=== PATIENT | male | born 1945 | race Caucasian/White ===

== ENCOUNTER → 2016-10-24 | Day surgery (SDC) | payer OTHER ==
[2016-10-11 08:21] VITALS: BMI 35.0
--- NOTE | 2016-10-11 08:58 | PAT Medication Instructions ---
Service Date Oct 11, 2016. Current Home Medication List Acetaminophen (Tylenol), 1,000 MG PO PRN Aspirin (Aspirin Ec), 81 MG PO HS Glimepiride (Glimepiride), 1 TAB PO QAM Hctz/Lisinopril (Zestoretic 20-12.5 mg), 1 TAB PO QAM Metformin Hcl (Glucophage), 1,000 MG PO BID Simvastatin (Zocor), 40 MG PO HS Medication Instructions For Your Scheduled Surgery - Hold the following medications 48 hours prior to surgery: Metformin Hcl (Glucophage), 1,000 MG PO BID - Hold the following medications the morning of surgery: Hctz/Lisinopril (Zestoretic 20-12.5 mg), 1 TAB PO QAM Glimepiride (Glimepiride), 1 TAB PO QAM - Take the following medications the morning of surgery with a sip of water: Acetaminophen (Tylenol), 1,000 MG PO PRN (if needed) - Take the following medications as scheduled the night before surgery: Simvastatin (Zocor), 40 MG PO HS Acetaminophen (Tylenol), 1,000 MG PO PRN (if needed) Aspirin (Aspirin Ec), 81 MG PO HS If you have any questions please call us at [phone] or [phone] ( [place]) or [phone]
--- NOTE | 2016-10-11 09:37 | DIAGNOSTIC IMAGING REPORT ---
CHEST PREADMISSION(PA/LAT) HISTORY: Preop. COMPARISON: None. FINDINGS: The heart is mildly enlarged. The right lung is clear. Punctate calcified granuloma within the left midlung zone. No pleural effusions. No pneumothorax. IMPRESSION: No acute process. Electronically signed by: Chandana Coombs M.D. 10/11/2016 9:36 AM Dictated Date/Time: 10/11/2016 9:32 AM
[2016-10-11 09:38] LABS: BASO % 0.2 %; BASO ABS # 0.01 K/uL (0-0.2); COMPLETE YES; EOS % 2.4 %; HEMATOCRIT 39.2 % (42-52); IG% 0.2 %; LYMPH ABS # 1.05 K/uL (1.2-3.4); MEAN CELL VOLUME 86.9 fL (80-100); MEAN CORPUSCULAR HEMOGLOBIN 30.6 pg (25-34); MEAN CORPUSCULAR HGB CONC 35.2 g/dl (32-36); MEAN PLATELET VOLUME 10.2 fL (7.4-10.4); MONO % 7.2 %; PLATELET COUNT 123 K/uL (130-400); RED BLOOD COUNT 4.51 M/uL (4.7-6.1); WHITE BLOOD COUNT 5.53 K/uL (4.8-10.8)
[2016-10-11 09:47] LABS: PROTHROMBIN TIME (PATIENT) 10.4 SECONDS (9.0-12.0)
[2016-10-11 10:12] LABS: CALCIUM 8.8 mg/dl (8.5-10.1); CREATININE 1.1 mg/dl (0.60-1.40); POTASSIUM 4.2 mmol/L (3.5-5.1)
--- NOTE | 2016-10-23 10:36 | HISTORY & PHYSICAL EXAMINATION ---
DATE OF ADMISSION: 10/24/2016 CHIEF COMPLAINT: Left shoulder pain and disability. HISTORY OF PRESENT ILLNESS: The patient is a 70-year-old gentleman seen and evaluated in our office for left shoulder pain and disability. MRI confirms a large rotator cuff tear as well as some AC joint arthritis. Due to pain and disability, the patient is scheduled for a left shoulder arthroscopy, rotator cuff repair versus debridement and distal clavicle excision. Due to his difficult airway, the patient has been scheduled to be performed at the hospital. PAST MEDICAL HISTORY: Hypertension, hypercholesterolemia, type 2 diabetes. PAST SURGICAL HISTORY: Hip surgery, right knee, cataract surgery. MEDICATIONS: Include, glyburide-metformin 2.5-500 one tablet twice daily, simvastatin 40 mg at bedtime, lisinopril-HCTZ 20-12.5 once daily. ALLERGIES: No known drug allergies. SOCIAL HISTORY AND REVIEW OF SYSTEMS: Noncontributory. PHYSICAL EXAMINATION: GENERAL: Well-nourished, well-developed, obese male, who appears stated age. HEENT: Normocephalic, atraumatic, extraocular movements intact, oropharynx pink and moist. NECK: Supple without adenopathy. LUNGS: Clear to auscultation bilaterally. HEART: Regular rate and rhythm. ABDOMEN: Soft, nontender, nondistended, obese. EXTREMITIES: The left upper extremity demonstrates limited painful range of motion. He has weakness in the rotator cuff to resisted testing. There is pain to palpate about the AC joint. X-RAYS: X-rays and MRI were reviewed. The plain x-rays did not show any significant or obvious abnormalities. The MRI shows a large rotator cuff tear retracted back to the level of the glenoid. There is evidence of degenerative changes at the AC joint with a large infraclavicular spur. ASSESSMENT: Left shoulder rotator cuff tear and AC joint arthritis. PLAN: Risks versus benefits were discussed. Consent was obtained. The patient's primary care physician is Dr. Larios. Will proceed with a left shoulder arthroscopy, subacromial decompression, rotator cuff repair versus debridement and distal clavicle excision upon preoperative workup and medical clearance.
[~2016-10-24] VITALS: Ht 180.3 cm; Wt 115.7 kg
[~2016-10-24] MED LIST: ACET-1256 PO; ASPI81TA28 PO; ATROPINE SULFATE 0.1 MG/ML 5ML SYR IV PRN; BUPIVACAINE/EPINEPHRINE 0.25% 1:200,000 30 ML VIAL ONE; CEFAZOLIN 2000 MG/60 ML D5W IV SCH; DEXAMETHASONE SOD INJ 4 MG/ML VIAL ONE; EpHEDrine SULFATE INJ 50 MG/ML AMP IV PRN; FENTANYL CITRATE INJ 50 MCG/1 ML 2 ML VIAL IV PRN; FENTANYL CITRATE INJ 50 MCG/1 ML 2 ML VIAL ONE; GLIM2TAB2 PO; HYDROCODONE/ACETAMOPHEN 5/325MG TAB PO PRN; LACTATED RINGER'S 1000ML 1,000 ML IV SCH; LIDOCAINE HCL 2% 2 ML VIAL (20MG/ML) ONE; LISI-787 PO; METF-384 PO; METOPROLOL TARTRATE 1 MG/ML VIAL ONE; MIDAZOLAM HCL 1 MG/ML 2ML VIAL ONE; ONDANSETRON INJ 2 MG/ML 2 ML VIAL IV PRN; OXYC-57 PO; OXYCODONE/ACETAMINOPHEN 5-325 TAB PO PRN; PROMETHAZINE HCL INJ 6.25 MG in SODIUM CHLORIDE 0.9% 50ML 50 ML IV PRN; PROPOFOL IV EMULSION 10 MG/ML 20 ML VIAL IV ONE; SIMV40TA2 PO; SODIUM CHLORIDE 0.9% 1000ML 1,000 ML IV SCH
[2016-10-24 07:34] VITALS: BP 181/84; PULSE 59; TEMP 36.3; O2SAT 97; Ht 180.3 cm; Wt 115.7 kg
--- NOTE | 2016-10-24 08:02 | History & Physical Bridge Note ---
H&P Re-Evaluation Bridge Note: I have examined the patient, reviewed the History & Physical and in the interval since the performance of the History & Physical I have noted the following changes of clinical significance: No changes noted
--- NOTE | 2016-10-24 10:03 | [facility] Post Operative Brief Note ---
Immediate Operative Summary Operative Date Oct 24, 2016. Pre-Operative Diagnosis Left should rotator cuff tear and Acromioclavicular Joint Arthritis Post-Operative Diagnosis Left should rotator cuff tear and Acromioclavicular Joint Arthritis Procedure(s) Performed Left Shoulder Arthroscopic Subacromial Decompression, Rotator Cuff Repair, Distal Clavicle Incision Surgeon Dr. Bc Khan Uniform Cap Operator Surgeon(s) Yoandy Rogers PA-C Estimated Blood Loss 20ml Findings rc tear djd ac jt. Specimens none per surgeon Dr. Bc Khan Disposition Recovery Room / PACU
--- NOTE | 2016-10-24 10:14 | Discharge Instructions ---
Discharge Instructions Visit Reason for Visit: Left Shoulder Impingement Syndrome, Massive Rtc Te Discharge Discharge Diagnosis / Problem: Left shoulder rotator cuff tear, AC joint arthritis Discharge Goals Goal(s): Decrease discomfort, Improve function Anesthesia . Post Anesthesia Instructions: If you have had General Anesthesia or IV Sedation: * Do not drive today. * Resume driving when surgeon permits. * Do not make important decisions or sign legal documents today. * Call surgeon for: 1. Temperature elevations greater than 101 degrees F. 2. Uncontrollable pain. 3. Excessive bleeding. 4. Persistent nausea and vomiting. 5. Medication intolerance (nausea, vomiting or rash). * For nausea and vomiting use only clear liquids such as: tea, soda, bouillon until nausea subsides, then gradually increase diet as tolerated. * If you have any concerns or questions, call your surgeon's office. If physician is unavailable and it is an emergency, call 911 or go to the nearest emergency room. . Instructions / Follow-Up Instructions / Follow-Up [facility] DISCHARGE INSTRUCTIONS: ROTATOR CUFF REPAIR SELF CARE INSTRUCTIONS A. You are permitted to loosen your sling/immobilizer to move your elbow, wrist , and hand to prevent stiffness. You should use your well arm (good arm) to assist the operated extremity when trying to raise the arm away from the body, hygiene purposes. Do NOT actively try to use/engage your shoulder muscles in operative arm at this time. You should NOT do overhead activity, lifting, or attempt to reach behind your back. B. You may/may not be instructed to start Physical Therapy upon discharge depending upon the size and difficulty of the repair. You will be provided a prescription for therapy with specific restrictions, if needed, at time of discharge. C. At 48 hours post-operatively, you may change your dressing. Use band-aids and change daily. You are allowed to shower at this time and get the incision area wet, but DO NOT soak or submerge incision area in water. (No baths, swimming pools, hot tubs) D. Do NOT apply soap or any ointment/lotions directly over incision. E. You may use ice as needed to operative shoulder SPECIAL CARE INSTRUCTIONS: VERY IMPORTANT TO READ AND REVIEW A. There are a few signs you need to watch for after you are home. Call [facility] at [phone] if you experience any of the following: a. Increased severe shoulder pain. Some pain is expected especially when you exercise b. Increased swelling in your shoulder or arm; pain or swelling in either upper extremity. (Note: swelling and stiffness is normal and expected for several weeks post op, depending on type of shoulder surgery you had). c. Any fluid or drainage from the incision; redness of the incision. d. Shortness of breath or chest pain. B. Please call [facility] at [phone] if you have any questions or concerns about your operation or recovery. C. Call your physician if: a. Temperature is greater than 101 degrees (F). b. Pain is not relieved by prescribed pain medications. c. Increase drainage or redness from incision. d. Unanswered questions or concerns. D. Pain Medication: a. You will be prescribed pain medication upon discharge that should last till your first post-operative appointment. b. If you experience nausea and/or skin rash, discontinue this medication and contact our office for an alternative medication. c. Caution- narcotic pain medication can cause constipation. FOLLOW UP VISIT: Please call [facility] at [phone] to schedule a follow up appointment 10-14 days from your surgery date. Diet Recommendations Recommended Home Diet: resume previous diet Procedures Procedures Performed: Left Shoulder Arthroscopic Subacromial Decompression, Rotator Cuff Repair, Distal Clavicle Incision Pending Studies Studies pending at discharge: no Medical Emergencies . Who to Call and When: Medical Emergencies: If at any time you feel your situation is an emergency, please call 911 immediately. . Non-Emergent Contact Non-Emergency issues call your: Surgeon Call Non-Emergent contact if: temperature is above 101.5, your pain is not controlled, wound has increased drainage, wound has increased redness . . "Provider Documentation" section prepared by Yoandy Rogers PA-C.
[2016-10-24 11:05] VITALS: BP 166/89; PULSE 64; TEMP 36.3; O2SAT 93
--- NOTE | 2016-10-24 11:41 | Anesthesiology Progress Note ---
Anesthesia Post Op Note Date & Time Oct 24, 2016 at 11:41 Vital Signs Pain Intensity: 0 Vital Signs Past 12 Hours Date Time Temp Pulse Resp B/P Pulse Ox O2 Delivery O2 Flow Rate FiO2 10/24/16 11:05 36.3 64 18 166/89 93 Room Air 10/24/16 10:50 36.1 67 17 164/88 93 Room Air 10/24/16 10:40 63 17 157/93 94 Room Air 10/24/16 10:30 68 18 169/97 97 Mask 10 10/24/16 10:20 67 20 164/94 97 Mask 10 10/24/16 10:14 36.0 65 20 150/77 97 Mask 10 10/24/16 07:34 36.3 59 20 181/84 97 Room Air Notes Mental Status: alert / awake / arousable, participated in evaluation Pt Amnestic to Procedure: Yes Nausea / Vomiting: adequately controlled Pain: adequately controlled Airway Patency, RR, SpO2: stable & adequate BP & HR: stable & adequate Hydration State: stable & adequate Anesthetic Complications: no major complications apparent
--- NOTE | 2016-10-24 15:28 | OPERATIVE REPORT ---
DATE OF OPERATION: 10/24/2016 PREOPERATIVE DIAGNOSIS: Rotator cuff tear and acromioclavicular arthritis, left shoulder. POSTOPERATIVE DIAGNOSIS: Rotator cuff tear and acromioclavicular arthritis, left shoulder. PROCEDURE: Arthroscopic subacromial decompression, rotator cuff repair and distal clavicle excision, left shoulder. SURGEON: Dr. Khan. ANESTHESIA: General. COMPLICATIONS: None. OPERATION AND FINDINGS: DESCRIPTION OF PROCEDURE: Following induction of adequate general anesthesia, the patient's left shoulder was prepped and draped in usual sterile manner with him in a beach chair position. Posterior incision was used for insertion of the arthroscope. Intraarticular elements were identified. The long head of the biceps was intact. The tear in the rotator cuff could be identified. The arthroscope scope was then placed in subacromial space where moderate bursitis was encountered. Bursectomy was carried out using a 90 degree ablator and a 5.5 mm bur was utilized to perform an arthroscopic subacromial decompression. The subacromial space was relatively stenotic. The thinning and longitudinal split in the rotator cuff was identified. No avulsion from the bone was noted. Using 2 Orthocord sutures the rotator cuff repair was carried out in a [id number] fashion using both the expresso and bird beaks. Following this, the soft tissue was removed from the undersurface of the distal clavicle and the last centimeter of bone was removed from the distal clavicle using the 5.5 mm bur. Once complete distal clavicle excision was documented, the wound was irrigated and closed with 4-0 nylon simple sutures. Sterile dressing of Adaptic, 4x4s, ABDs and foam tape and a Velpeau sling was applied. The patient tolerated the procedure well. I attest to the content of the Intraoperative Record and any orders documented therein. Any exceptio ns are noted below.
== END | disposition home or self-care (01) ==
LOC: C.ACU 07:07
DX: M75.102 Unspecified rotator cuff tear or rupture of left shoulder, not specified as traumatic (principal); M19.019 Primary osteoarthritis, unspecified shoulder; I10 Essential (primary) hypertension; E78.5 Hyperlipidemia, unspecified; E11.9 Type 2 diabetes mellitus without complications; Z98.890 Other specified postprocedural states